=== PATIENT | male | born 1975 | race Caucasian/White ===

== ENCOUNTER 2020-12-26 08:05 | Emergency (ER) | payer OTHER, SELFPAY ==
[2020-12-26 08:19] VITALS: BP 150/106; PULSE 78; RESP 18; TEMP 37.2; O2SAT 99
--- NOTE | 2020-12-26 08:21 | ED.GENADULT ---
HPI - General Adult General Chief complaint: Nausea/Vomiting/Diarrhea Stated complaint: Diarrhea, abdominal pain and nausea Source: patient and RN notes reviewed Mode of arrival: ambulatory Limitations: no limitations History of Present Illness HPI narrative: 45-year-old male presents with complaints of intermittent abdominal pain, diarrhea, vomiting, and nausea for the past 3 days. Sebastián reports nausea and one episode of vomiting on Saturday. ?No treatment. ?Related the episode to being overheated, works in the heat as a mail distribution clerk. ?Saturday and Saturday had no episodes.? Sebastián reports?awakening with nausea, abdominal pain, and 2 episodes of loose stools. ?No exacerbating factors. ?LBM this AM loose stool without blood. ?Denies fever or chills. ?Denies headache, dizziness, back pain, dysuria, and blood in stool. Tolerating po intake well. ?Remains active. ?The patient reports he has not been diagnosed with COVID-19. ?The patient reports he received 2 Pfizer COVID-19 vaccines. ?The patient reports he is not waiting for the results of a COVID-19 lab test. ?The patient reports she does not have weakness, fatigue, or myalgia. ?The patient reports he does not have a new or worsening cough or shortness of breath. ?The patient reports he does not have any rhinorrhea, congestion, loss of taste or smell, and sore throat. ?Denies recent traveling. Denies concerns for COVID-19 or exposures. ?At this time, the patient is not suspected of having COVID-19. Some parts of this dictation were generated by voice recognition software and may contain typographical and/or grammatical inaccuracies. Related Data Allergies Allergy/AdvReac Type Severity Reaction Status Date / Time No Known Allergies Allergy Verified 12/26/20 08:21 Review of Systems Review of Systems: CONSTITUTIONAL: Denies fever, chills, sweats. EYES: Denies visual changes, redness, discharge. ENT: Denies rhinorrhea, congestion, sore throat, otalgia. CARDIOVASCULAR: Denies chest pain, palpitations, edema. RESPIRATORY: Denies dyspnea, wheezing, cough. GASTROINTESTINAL: Denies vomiting. Complains of abdominal pain, diarrhea, nausea. SKIN: Denies rash or itching. MUSCULOSKELETAL: Denies acute back pain, joint pain, or myalgia. NEUROLOGIC: Denies numbness or focal weakness. PSYCHIATRIC: Denies anxiety or depression. All systems reviewed & are unremarkable except as noted in HPI and below. [facility] Past Medical History Medical History (Updated 12/27/20 @ 05:27 by MADISON Younger) Wrist fracture, right Surgical History Surgical History (Updated 12/27/20 @ 05:27 by MADISON Younger) History of carpal tunnel surgery of right wrist History of hand surgery RT 5th finger surgery in 8th grade History of surgery on wrist RT wrist insertion of hardware and removal of hardware Family History Family History (Updated 12/27/20 @ 05:27 by MADISON Younger) Father Diabetes mellitus Hypertension Mother Diabetes mellitus Social History Social History (Updated 12/27/20 @ 05:28 by MADISON Younger) Smoking status: Never smoker Tobacco type: cigarettes Second hand tobacco smoke exposure: No Alcohol intake: current Substance use: never Substance use type: does not use Living arrangements: with family Occupation/Education: occupation 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 Please see the nursing chart for further information. There is no relevant family history pertinent to the presenting complaint. Exam Narrative: GENERAL: This is a well-nourished, well-developed patient, in no apparent distress. Talks in full sentences without deficits and ambulate
== END 2020-12-26 08:41 | disposition home or self-care (01) ==
PROVIDERS: Emergency Provider Nurse Practitioner Family; PCP Family Medicine
DX: K52.9 Noninfective gastroenteritis and colitis, unspecified (principal)
CPT/HCPCS: 99213; G0463